=== PATIENT | male | born 1945 | race Caucasian/White ===

== ENCOUNTER 2019-09-15 05:22 | Outpatient (CLI) | payer MEDICARE, OTHER ==
[2019-09-15 14:02] LABS: Hemoglobin 12.7 g/dL (14.0-18.0); Mean Corpuscular HGB CONC 33.6 g/dL (32.0-36.0); Mean Corpuscular Hemoglobin 31.7 pg (27.0-31.0); Mean Corpuscular Volume 94.5 fL (78.0-98.0); Mean Platelet Volume 7.6 fL (7.4-10.4); Platelet Count 370 thou/uL (130-400); RBC Distribution Width 11.6 % (11.5-14.5); Red Blood Cell (RBC) Count 4.01 mill/uL (4.70-6.10); White Blood Cell (WBC) Count 7.6 thou/uL (4.8-10.8)
[2019-09-15 14:18] LABS: Anion Gap 9 mmol/L (10-20); BUN (Urea Nitrogen) 10 mg/dL (8.4-25.7); Calc. Creatinine Clearance 0 mL/min (70-130); Calcium 8.3 mg/dL (7.8-10.44); Carbon Dioxide 30 mmol/L (23-31); Chloride 105 mmol/L (98-107); Estimated GFR-MDRD 89; Glucose 82 mg/dL (83-110); Potassium 4.3 mmol/L (3.5-5.1); Sodium 140 mmol/L (136-145)
[2019-09-15 14:24] LABS: Bacteria/HPF None Seen HPF (None Seen); Bilirubin Negative (Negative); Blood, Urine Negative (Negative); Clarity Clear (Clear); Glucose, Urine (Dipstick) Normal (Negative); Ketone, Urine Negative (Negative); Leukocyte 25 Leu/uL (Negative); Nitrite Negative (Negative); Protein, Urine (Dipstick) Negative (Neg-Trace); RBC/HPF 0-3 HPF (0-3); Specific Gravity, Urine 1.013 (1.002-1.036); Squamous Epithelial None Seen HPF (0-3); Urobilinogen Normal mg/dL (Less than 2); WBC/HPF 0-3 HPF (0-3)
[2019-09-16 14:42] LABS: SARS-CoV-2 MS2 Positive; SARS-CoV-2 N Gene Negative; SARS-CoV-2 S Gene Negative; SARS-CoV-2 by NAA Not Detected (NotDetected); SARS-CoV-2 orf1ab Negative
== END 2019-09-15 05:23 | disposition home or self-care (01) ==
LOC: LABBT 05:22
PROVIDERS: ATTEND Urology
DX: Z01.812 Encounter for preprocedural laboratory examination (principal); Z11.59 Encounter for screening for other viral diseases; N40.1 Benign prostatic hyperplasia with lower urinary tract symptoms
CPT/HCPCS: 80048; 81001; 85027; 87086; U0003; 87635

== ENCOUNTER → 2019-09-19 | Day surgery (SDC) | payer MEDICARE ==
[2019-09-14 09:52] VITALS: BMI 35.2
[~2019-09-19] MED LIST: Fentanyl 250 MCG/5 ML VIAL ONE; Levofloxacin 500 mg/D5W 100 ml Premix Bag ONE
== END ==
LOC: SDC 07:07
PROVIDERS: ATTEND Urology
DX: N40.1 Benign prostatic hyperplasia with lower urinary tract symptoms (principal); N39.490 Overflow incontinence; R33.8 Other retention of urine; R39.12 Poor urinary stream; I11.0 Hypertensive heart disease with heart failure; I50.9 Heart failure, unspecified; I48.91 Unspecified atrial fibrillation; Z53.09 Procedure and treatment not carried out because of other contraindication; Z79.899 Other long term (current) drug therapy
CPT/HCPCS: J1956; J3010

== ENCOUNTER 2019-10-19 07:29 | Outpatient (CLI) | payer MEDICARE ==
--- NOTE | 2019-10-19 08:37 | CT ---
CT pelvis with contrast: 10/19/2019 HISTORY: 74-year-old male with ICD-10: "C 61, malignant neoplasm of prostate." COMPARISON: CT abdomen and pelvis of 09/01/2019 FINDINGS: A normal prostate gland is currently not visualized. What may have been prostate gland on the previou s CT is replaced by a structure at the floor of the pelvis with low attenuation fluid-filled center and thick enhancing guzman. This is contiguous with, and inseparable from, irregular mural thickening of the caudal portion of the urinary bladder circumferentially, questionable for neoplastic tumor invasion. The Fagan catheter has been removed. There are new bilateral ureteral stents. The lower curl of the right stent appears to be partially in the bladder lumen and mostly in the thickened bladder wall. The lower curl of the left ureteral stent is positioned more inferiorly within a caudal portion of the bladder lumen. This stent is parti ally within that lower chamber lumen and partially in the thickened bladder wall. No definite enlarged internal iliac chain lymph nodes are visualized. There are bilateral external il iac chain lymph nodes that are minimally prominent, approximately malignant 1.5 x 1 cm each. However, these have fatty mg, and therefore they may not necessarily be malignant. These are unchan ged. No free fluid in the pelvic cavity. No signs of sigmoid colonic diverticulitis. DJD at bilateral SI joints. Mild to moderate DJD at bilateral hip joints. Degenerative disc disease a nd facet DJD at lower lumbar spine and lumbosacral junction. IMPRESSION: 1.) New bilateral ureteral stents. See above comments regarding location of lower curls. 2) a normal prostate gland is not visualized. See above comments. 3) mural thickening of lower portion of urinary bladder, questionable for neoplastic tumor invasion.
--- NOTE | 2019-10-19 11:33 | NM ---
EXAM: NM Bone Scan STANDARD PROVIDED CLINICAL HISTORY: Malignant neoplasm of prostate. COMPARISON: CT pelvis on 10/19/2019 FINDINGS: There is increased uptake of radiotracer seen in the shoulders bilaterally in a degenerative pattern. There is an eccentric area of uptake seen within the lower lumbar spine at the level of the L5 vertebral body, and degenerative changes are seen in the lower lumbar spine on recent CT pelvis great est at the lumbosacral junction which probably accounts for this finding. Focus of increased uptake is seen overlying the midline in the region of the maxilla which may be rel ated to periodontal disease. There is increased uptake of radiotracer seen in region of the thyroid cartilage. In addition, there is focal area of increased uptake seen at the sternomanubrial junction which may be on the basis of degenerative change. No additional focal areas of increased uptake of radiotracer seen within the visualized appendicular or axial skeleton. Expected activity seen in the region of the bilateral kidneys and in the urinary bladder. IMPRESSION: Scattered areas of increased uptake suggesting degenerative changes, but there are no scintigraphic f indings to suggest osseous metastatic disease.
[2019-10-19] MEDS ORDERED: Iopamidol 370 76% 100 ML VIAL ONE (13:20)
== END 2019-10-19 07:30 | disposition home or self-care (01) ==
LOC: CT 07:29
PROVIDERS: ATTEND Urology
DX: C61 Malignant neoplasm of prostate (principal); N32.89 Other specified disorders of bladder
CPT/HCPCS: 72193; 78306; A9503; Q9967

== ENCOUNTER 2019-11-27 09:24 | Outpatient (CLI) | payer MEDICARE ==
--- NOTE | 2019-11-27 10:14 | ULT ---
ULTRASOUND RETROPERITONEUM COMPLETE: (RENAL) DATE: 11/27/2019 HISTORY: 74-year-old male with N17.9 acute kidney failure FINDINGS: Right kidney: 13 x 6.5 x 6.5 cm. Left kidney: 12.5 x 6 x 6.5 cm. No hydronephrosis. Approximately 4.5 x 4 x 5 cm lobular right renal upper pole parapelvic cyst. At least 3 cysts in the left kidney: 4 x 3 x 3.5 cm, 4 x 3 x 4.5 cm, and 2.5 x 2 x 2 cm. Bilateral ureteral jets demonstrated in the bladder. Prevoid bladder volume 150 mL. Post void residual: 10 mL. Diffuse mural thickening of urinary bladder. IMPRESSION: 1) no hydronephrosis. 2) several prominent bilateral renal cysts. 3) nonspecific diffuse mural thickening of urinary bladder.
== END 2019-11-27 09:25 | disposition home or self-care (01) ==
LOC: SCSULT 09:24
PROVIDERS: ATTEND Internal Medicine Nephrology
DX: N17.9 Acute kidney failure, unspecified (principal); N28.1 Cyst of kidney, acquired; N32.89 Other specified disorders of bladder
CPT/HCPCS: 76770

== ENCOUNTER 2022-03-26 12:47 | Outpatient (CLI) | payer MEDICARE ==
[2022-03-26 13:50] LABS: Bilirubin Neg (Negative); Blood, Urine 25 (Negative); Clarity Slightly Cloudy (Clear); Glucose, Urine (Dipstick) Normal (Negative); Ketone, Urine Negative (Negative); Leukocyte 500 (Negative); Nitrite Negative (Negative); Protein, Urine (Dipstick) 30 mg/dl (Neg-Trace); Specific Gravity, Urine 1.005 (1.005-1.030); Urobilinogen Normal mg/dL (Less than 2)
[2022-03-26 13:58] LABS: Hemoglobin 11.8 g/dL (13.5-17.5); INR-International Normal Ratio 1.1; Mean Corpuscular HGB CONC 33.8 g/dL (32.0-36.0); Mean Corpuscular Hemoglobin 32.9 pg (27.0-33.0); Mean Corpuscular Volume 97.2 fl (81.2-95.1); Mean Platelet Volume 9.7 fl (7.4-10.4); Platelet Count 352 10x3/uL (150-450); Prothrombin Time 11.4 sec (9.5-12.1); RBC Distribution Width 14.1 % (11.5-14.5); Red Blood Cell (RBC) Count 3.59 10x6/uL (4.32-5.72); White Blood Cell (WBC) Count 8.8 10x3/uL (3.5-10.5)
[2022-03-26 14:00] LABS: Anion Gap 15 mmol/L (10-20); BUN (Urea Nitrogen) 20 mg/dL (8.4-25.7); Calc. Creatinine Clearance 0 mL/min (70-130); Calcium 8.8 mg/dL (7.8-10.44); Carbon Dioxide 26 mmol/L (23-31); Chloride 109 mmol/L (98-107); Estimated GFR 43; Glucose 124 mg/dL (83-110); Potassium 3.6 mmol/L (3.5-5.1); Sodium 146 mmol/L (136-145)
[2022-03-26 14:32] LABS: WBC/HPF 21-50 HPF (0-3)
[2022-03-26 14:33] LABS: Bacteria/HPF 3+ HPF (None Seen); Squamous Epithelial 0-3 HPF (0-3)
[2022-03-26 14:34] LABS: Mucous/LPF 1+ LPF (<2+)
== END 2022-03-26 12:48 | disposition home or self-care (01) ==
LOC: LABBT 12:47
PROVIDERS: ATTEND Urology
DX: Z01.812 Encounter for preprocedural laboratory examination (principal); C61 Malignant neoplasm of prostate; N32.0 Bladder-neck obstruction; N39.41 Urge incontinence; N32.81 Overactive bladder
CPT/HCPCS: 80048; 81001; 85027; 85610; 85730; 87086

== ENCOUNTER 2022-04-09 09:10 | Day surgery (SDC) | payer MEDICARE ==
[2022-04-08 12:09] VITALS: BMI 33.2
[2022-04-09] MEDS ORDERED: Iopamidol 45 ML ONE (11:56)
[2022-04-09] MEDS ORDERED: Fentanyl 100 MCG/2 ML VIAL ONE ×3 (12:04→14:28)
[2022-04-09] MEDS ORDERED: Levofloxacin 500 mg/D5W 100 ml Premix Bag ONE (12:05)
[2022-04-09] MEDS ORDERED: ePHEDrine 50 MG/ML VIAL ONE (12:17)
[2022-04-09] MEDS ORDERED: Lidocaine 1% PF 5 ML VIAL ONE (12:17)
[2022-04-09] MEDS ORDERED: PROPOFOL 200 MG/20 ML VIAL ONE (12:17)
[2022-04-09] MEDS ORDERED: Triamcinolone 40 MG/ML VIAL ONE (12:28)
[2022-04-09] MEDS ORDERED: Oxybutynin 5 MG TAB ONE (13:37)
[2022-04-09] MEDS ORDERED: fentaNYL PF 100 MCG/2 ML SYRINGE ONE (14:09)
== END 2022-04-09 15:40 | disposition home or self-care (01) ==
LOC: SDC 09:10
PROVIDERS: ATTEND Urology
PROC: 0T7D8ZZ Dilation of Urethra, Via Natural or Artificial Opening Endoscopic (ICD-10-PCS; principal; 2022-04-09)
PROC: 3E0K83Z Introduction of Anti-inflammatory into Genitourinary Tract, Via Natural or Artificial Opening Endoscopic (ICD-10-PCS; 2022-04-09)
DX: N32.0 Bladder-neck obstruction (principal); N35.919 Unspecified urethral stricture, male, unspecified site; N39.3 Stress incontinence (female) (male); C61 Malignant neoplasm of prostate; I11.0 Hypertensive heart disease with heart failure; I50.9 Heart failure, unspecified; E78.5 Hyperlipidemia, unspecified; Z79.01 Long term (current) use of anticoagulants; Z79.84 Long term (current) use of oral hypoglycemic drugs; Z79.899 Other long term (current) drug therapy
CPT/HCPCS: 51610; 74450; J1956; J2704; J3010; J3301; J3490; Q9967